=== PATIENT | male | born 1980 | race Caucasian/White ===

== ENCOUNTER 2019-12-24 16:01 | Emergency (ER) | payer OTHER ==
[~2019-12-24] VITALS: Ht 180.3 cm; Wt 140.6 kg
[2019-12-24 16:05] VITALS: Ht 180.3 cm; Wt 140.6 kg
[2019-12-24 17:01] VITALS: BP 146/83
== END 2019-12-24 18:30 | disposition home or self-care (01) ==
LOC: ED 16:01
DX: S83.194A Other dislocation of right knee, initial encounter (principal); X50.1XXA Overexertion from prolonged static or awkward postures, initial encounter; Y93.89 Activity, other specified; Y92.89 Other specified places as the place of occurrence of the external cause; Y99.8 Other external cause status
CPT/HCPCS: Q0092